=== PATIENT | female | born 2000 | race Caucasian/White ===

== ENCOUNTER 2019-02-21 13:47 | Emergency (ER) | payer OTHER ==
[~2019-02-21] VITALS: Ht 160 cm; Wt 99.5 kg
[2019-02-21 13:48] VITALS: BP 140/82
[2019-02-21] MEDS ORDERED: SING10TA32 PO (13:52)
[2019-02-21] MEDS ORDERED: PRENTAB55 PO (13:52)
[2019-02-21] MEDS ORDERED: ZYRTTAB8 PO (13:52)
[2019-02-21] MEDS ORDERED: OMEP40CA2 PO (13:52)
[2019-02-21 16:32] LABS: THYROID STIMULATING HORMONE 1.6 uIU/ML (0.463-3.98)
--- NOTE | 2019-02-21 17:25 | REPVR ---
EXAM: US First Trimester, Transabdominal EXAM DATE/TIME: 02/21/2019 5:13 PM CLINICAL HISTORY: 18 years old, female; complicated by abdominal or pelvic pain; Lower; First trimester; Gestational age or lmp: 7w1d; ; Additional info: Pelvic pain; Lmp-01/02/19 TECHNIQUE: Imaging protocol: Real-time transabdominal obstetrical ultrasound of the maternal pelvis and a first trimester , less than 14 weeks 0 days, with image documentation. COMPARISON: No relevant prior studies available. FINDINGS: GESTATION: Gestation: Single gestational sac demonstrated within the uterine fundus. Yolk sac measures 3.6 mm. Heart rate: heart rate 137 beats per minute. Placenta: Unremarkable. No subchorionic bleed. Amniotic fluid: Amniotic and chorionic fluid are normal for gestational age. BIOMETRY: Estimated gestational age: Gestational age based on crown-rump length is 6 weeks 3 days. Gestational age based on LMP of 01/02/2019 is 7 weeks 1 day. [place]-Rump length: Single pole demonstrated with a crown-rump length measuring 0.62 cm. MATERNAL: Uterus: Unremarkable. Cervix: Unremarkable. Right adnexa: Unremarkable. Left adnexa: Unremarkable. Intraperitoneal: No intraperitoneal free fluid. IMPRESSION: Unremarkable first trimester gestation of 6 weeks 3 days based on crown-rump length. Followup evaluation at 19-20 weeks can be obtained for detailed structural survey if clinically desired. Electronically signed by: Reuben Palmer On 02/21/2019 17:25:31 PM
== END 2019-02-21 17:51 | disposition home or self-care (01) ==
LOC: M ED 13:47
DX: O99.89 Other specified diseases and conditions complicating pregnancy, childbirth and the puerperium (principal); R10.2 Pelvic and perineal pain; Z3A.01 Less than 8 weeks gestation of pregnancy; J45.909 Unspecified asthma, uncomplicated; E27.9 Disorder of adrenal gland, unspecified; Z79.899 Other long term (current) drug therapy; Z88.1 Allergy status to other antibiotic agents

== ENCOUNTER 2019-08-19 17:26 | Outpatient (CLI) | payer OTHER ==
[~2019-08-19] VITALS: Ht 160 cm; Wt 107.9 kg
[~2019-08-19 17:26] MED LIST: OMEP40CA97 PO; PRENTAB55 PO; SING10TA32 PO; ZYRTTAB8 PO
[2019-08-19 17:43] VITALS: BP 117/77
[2019-08-19] MEDS ORDERED: ADVA230A INH (17:56)
[2019-08-19 18:44] VITALS: BP 130/78
--- NOTE | 2019-08-19 18:48 | IPNPDOC ---
Text Note Date of Service The patient was seen on 08/19/19. NOTE Patient is 19yo G 1 P1 at 32wks. C/o SHARP PELVIC PAIN. No loss of fluid or bleeding. Good movement. FHT: Category 1, 130s, reactive, no decels. no contractions. SVE closed, soft, high. Fetus reassuring. Patient not in labor and no rupture of membranes. Patient given labor precautions, rupture of membranes precautions and kick counts. Pelvic rest. She has a follow up appt on 08/25/2019. VS,Fishbone, I+O VS, Fishbone, I+O Vital Signs Date Time Temp Pulse Resp B/P (MAP) Pulse Ox O2 Delivery O2 Flow Rate FiO2 08/19/19 18:00 110 08/19/19 17:43 98.1 18 117/77 (90) 94 Room Air Marietta Delatorre MD Aug 19, 2019 18:48
== END 2019-08-19 19:10 | disposition home or self-care (01) ==
LOC: M LDO 17:26
PROVIDERS: ATTEND Obstetrics & Gynecology
DX: O26.893 Other specified pregnancy related conditions, third trimester (principal); R10.2 Pelvic and perineal pain; Z3A.32 32 weeks gestation of pregnancy
CPT/HCPCS: 59025; G0378; G0463

== ENCOUNTER → 2020-09-30 | Outpatient (CLI) | payer SELFPAY ==
[~2020-09-30] MED LIST changes: +ADVA230A INH
== END ==
LOC: M LABSMTC 11:06
PROVIDERS: ATTEND Pediatrics
DX: Z20.828 Contact with and (suspected) exposure to other viral communicable diseases (principal)

== ENCOUNTER 2021-03-30 17:11 | Emergency (ER) | payer OTHER ==
[~2021-03-30] VITALS: Ht 160 cm; Wt 116.8 kg
[2021-03-30 17:11] VITALS: BP 124/88
[~2021-03-30 17:11] MED LIST changes: +OMEP40CA4 PO; -OMEP40CA97 PO
--- NOTE | 2021-03-30 20:06 | REP ---
INDICATION: fall injury. COMPARISON: None. TECHNIQUE: Four views FINDINGS: No acute fracture or destructive osseous lesion. The mortise is intact. IMPRESSION: Negative exam <Electronically signed by Enmanuel Hernandez > 03/30/212001
--- NOTE | 2021-03-30 23:02 | REPVR ---
PROCEDURE INFORMATION: Exam: US Right Non-Vascular Joint or Other Extremity Structure Exam date and time: 03/30/2021 10:03 PM Age: 20 years old Clinical indication: Pain; Ankle; Right; Additional info: R achilles pain TECHNIQUE: Imaging protocol: Right US joint or other nonvascular extremity structure or structures. Real-time ultrasound with image documentation. Limited study. Exam focused on the lower extremity in the region of clinical interest. COMPARISON: CR Ankle, complete 03/30/2021 7:09 PM FINDINGS: Soft tissues: The Achilles tendon appears to be intact. No fluid collections are seen. IMPRESSION: Negative Achilles tendon. Electronically signed by: Gilmar Arellano On 03/30/2021 23:02:05 PM
--- NOTE | 2021-03-30 23:06 | REPVR ---
PROCEDURE INFORMATION: Exam: US Duplex Right Lower Extremity Veins, Limited Exam date and time: 03/30/2021 10:03 PM Age: 20 years old Clinical indication: Pain; Leg, lower; Right; Additional info: R/O dvt rle TECHNIQUE: Imaging protocol: Real-time Duplex ultrasound of the Right Lower Extremity with 2-D stone scale, color Doppler flow and spectral waveform analysis with image documentation. Limited exam was focused on the right lower extremity veins. COMPARISON: US EXTREMITY NON VASCUL LIMITED RIGHT 03/30/2021 9:45 PM FINDINGS: Right deep veins: Unremarkable. The common femoral, femoral, proximal profunda femoral and popliteal veins are patent without thrombus. Normal Doppler waveforms. Normal compressibility and/or augmentation response. Right superficial veins: Unremarkable. Saphenofemoral junction is patent without thrombus. Soft tissues: Unremarkable. IMPRESSION: Negative right lower extremity venous duplex exam without evidence of deep venous thrombosis. Electronically signed by: Gilmar Arellano On 03/30/2021 23:05:59 PM
== END 2021-03-30 23:38 | disposition home or self-care (01) ==
LOC: M ED 17:11
DX: S93.401A Sprain of unspecified ligament of right ankle, initial encounter (principal); M79.661 Pain in right lower leg; X50.0XXA Overexertion from strenuous movement or load, initial encounter; Y92.9 Unspecified place or not applicable; Y93.9 Activity, unspecified; Y99.9 Unspecified external cause status; J45.909 Unspecified asthma, uncomplicated; F17.200 Nicotine dependence, unspecified, uncomplicated; E66.9 Obesity, unspecified; Z88.1 Allergy status to other antibiotic agents